=== PATIENT | female | born 1930 | race Caucasian/White ===

== ENCOUNTER 2017-05-25 19:18 | Inpatient (IN) | payer MEDICARE, MEDICAID ==
[~2017-05-25] VITALS: Ht 152.4 cm; Wt 55.8 kg
--- NOTE | 2017-05-25 19:42 | NUR ---
Pt danette from [facility] on a 5150 for gravely disable due to multiple attempts at elopement. Pt alert and oriented to name, , place and month but is disoriented to situation. Pt sts she is scared, pt reassured she is in a safe place. Pt no physical complaints. Resp even and unlabored. No obvious signs of distress at this. Pt resting in position of comfort for self. Pt calm and cooperative at this time. Sitter at bedside. Pt awaiting further eval.
[2017-05-25 19:54] LABS: BASOPHILS # (AUTO) 0.1 K/uL (0.0-8.0); BASOPHILS % (AUTO) 0.7 % (0.0-2.0); EOSINOPHILS # (AUTO) 0.3 K/uL (0.0-0.7); EOSINOPHILS % (AUTO) 3.6 % (0.0-7.0); HEMATOCRIT 35.8 % (37-47); HEMOGLOBIN 11.9 G/DL (12.0-16.0); LYMPHOCYTES # (AUTO) 0.8 K/UL (0.8-4.8); LYMPHOCYTES % (AUTO) 9.7 % (20.5-51.5); MEAN CORPUSCULAR HEMOGLOBIN 30.6 UUG (27.0-31.0); MEAN CORPUSCULAR HGB CONC 33 g/dL (32.0-37.0); MONOCYTES # (AUTO) 0.5 K/UL (0.1-1.30); MONOCYTES % (AUTO) 5.8 % (0.0-11.0); NEUTROPHILS # (AUTO) 6.2 K/UL (1.8-8.9); NEUTROPHILS % (AUTO) 80.2 % (38.5-71.5); PLATELET COUNT (AUTO) 244 K/UL (150-450); RED BLOOD CELL COUNT(AUTO) 3.89 MIL/UL (4.2-5.4); WHITE BLOOD COUNT (AUTO) 7.9 K/UL (4.0-11.2)
[2017-05-25] MEDS ORDERED: POTA10TA15 PO (19:57)
[2017-05-25] MEDS ORDERED: MAGN400O6 PO (19:57)
[2017-05-25] MEDS ORDERED: POLY17PO4 PO (19:57)
[2017-05-25] MEDS ORDERED: FURO-152 PO (19:57)
[2017-05-25] MEDS ORDERED: HYDR26CR TP (19:57)
[2017-05-25] MEDS ORDERED: TRAZ-144 PO (19:57)
[2017-05-25] MEDS ORDERED: MIRT45TA PO (19:57)
[2017-05-25] MEDS ORDERED: BISA10SU12 RC (19:57)
[2017-05-25] MEDS ORDERED: CLON0.5T4 PO (19:57)
[2017-05-25] MEDS ORDERED: MAG355OR32 PO (19:57)
[2017-05-25] MEDS ORDERED: ACET-2154 PO (19:57)
[2017-05-25] MEDS ORDERED: DOCU100C36 PO (19:57)
[2017-05-25] MEDS ORDERED: ACET325T53 PO (19:57)
[2017-05-25] MEDS ORDERED: GABA100C PO (19:57)
[2017-05-25 20:15] LABS: ALANINE AMINOTRANSFERASE 12 U/L (14-59); ALKALINE PHOSPHATASE 93 U/L (50-136); ASPARTATE AMINOTRANSFERASE 15 U/L (15-37); BILIRUBIN,DIRECT 0.1 mg/dL (0.0-0.2); BILIRUBIN,TOTAL 0.1 mg/dL (0.2-1.0); CARBON DIOXIDE 34 mmol/L (21-32); CHLORIDE 102 mmol/L (98-107); CREATININE 1.1 mg/dL (0.6-1.3); GLUCOSE 112 mg/dL (74-106); POTASSIUM 4.4 mmol/L (3.5-5.1); TOTAL PROTEIN, SERUM 7.3 g/dL (6.4-8.2); UREA NITROGEN, BLOOD 25 mg/dL (7-18)
[2017-05-25 20:16] LABS: ETHANOL < 3 MG/DL (0-0)
[2017-05-25 20:23] LABS: THYROID STIMULATING HORMONE 5.312 mIU/mL (0.358-3.740)
[2017-05-25] MEDS ORDERED: LORAZEPAM 0.5 MG TABLET PO ONE (20:30)
--- NOTE | 2017-05-25 20:32 | NUR ---
Pt medicated for anxiety, will monitor for effects of medication. Sitter remains at bedside.
[2017-05-25] MEDS ORDERED: LORAZEPAM 1 MG TABLET ONE (20:41)
--- NOTE | 2017-05-25 21:51 | NUR ---
Pt medically cleared for admission to [facility]. Report called. Pt transferred to the unit.
--- NOTE | 2017-05-25 21:55 | NUR ---
Nurses notes:GPS. At approx 2155 patient was admitted to the unit from ER. patient entered the facility via wheelchair. Full report was obtained from COMPUTER NETWORKING INSTRUCTOR ADJUNCT Kyle. patient noted crying and she stated that "I want to go back home". Per ER report, Ativan 1mg was given at 2030. we will continue to monitor. Addendum: 05/26/17 at 0506 by SAL TROY RN Nurses notes:GPS Patient was admitted with Dx. Psychosis. on a 5150 hold d/t GD, starting on 05/25/17 at 1600 and ending on 05/28/17 at 1600. At time of admission, patient was noted anxious, crying, and wanting to leave the unit. she denies SI and HI. we will continue to monitor.
[2017-05-25] MEDS ORDERED: MAG HYDROX/AL HYDROX/SIMETH 30 ML LIQUID UDC PO PRN (22:45)
[2017-05-25] MEDS ORDERED: LORAZEPAM 0.5 MG TABLET PO PRN (22:45)
[2017-05-25] MEDS ORDERED: TEMAZEPAM 7.5 MG CAPSULE PO PRN (22:45)
[2017-05-25] MEDS ORDERED: ACETAMINOPHEN 325 MG TABLET PO PRN (22:45)
[2017-05-25] MEDS ORDERED: MAGNESIUM HYDROXIDE 30 ML LIQUID UDC PO PRN (22:45)
[2017-05-25] MEDS ORDERED: TEMAZEPAM 7.5 MG CAPSULE ONE (23:26)
[2017-05-26 02:09] VITALS: BP 155/67
[2017-05-26 06:38] LABS: *BILIRUBIN,URIN NEGATIVE (NEGATIVE); *BLOOD, URINE NEGATIVE (NEGATIVE); *CLARITY,URINE CLEAR (CLEAR); *COLOR,URINE YELLOW (YELLOW); *KETONES,URINE NEGATIVE (NEGATIVE); *PROTEIN,URINE NEGATIVE (NEGATIVE); *UROBILINOGEN,URINE 0.2 E.U./dl (NORMAL); LEUKOCYTE ESTERASE ,URINE TRACE (NEGATIVE); NITRITE, URINE NEGATIVE (NEGATIVE); UGLUCOSE NEGATIVE (NEGATIVE)
[2017-05-26 07:23] LABS: BACTERIA,URINE NONE SEEN /HPF (NONE SEEN); RBC,URINE NONE SEEN /HPF (0-3); SQUAMOUS EPITHELIAL CELL,UR FEW /HPF (NONE SEEN)
[2017-05-26 07:30] VITALS: BP 148/82
[2017-05-26] MEDS ORDERED: HYDROCORTISONE 1% CREAM 30 GM TUBE TP PRN (14:00)
[2017-05-26] MEDS ORDERED: BISACODYL 10 MG SUPP.RECT RC PRN (14:00)
[2017-05-26] MEDS ORDERED: GABAPENTIN 100 MG CAPSULE PO PRN (14:00)
[2017-05-26 14:24] LABS: IRON, SERUM 30 ug/dL (50-175)
--- NOTE | 2017-05-26 14:58 | NUR ---
Initial discharge instructions: Pt resides at [facility].[[address] [place],[phone]].Per pt,she would like to return back to the [facility] upon discharge.Spoke with pt's daughter,Cheryl Blair [phone] who stated she would like the pt to return.BERKLEY called and left a voicemail for Michelle in admissions requesting a call back.BERKLEY will speak with pt,family,and MD regarding appropriate discharge plans.SW will form a safe and proper discharge.
[2017-05-26 16:00] VITALS: BP 136/60
[2017-05-26] MEDS: DOCUSATE SODIUM 100 MG CAPSULE PO SCH (17:17)
[2017-05-26] MEDS: TRAZODONE 50 MG TABLET PO SCH (20:09)
[2017-05-26] MEDS: MIRTAZAPINE 15 MG TABLET PO SCH (20:10)
[2017-05-26] MEDS: QUETIAPINE FUMARATE 25 MG TABLET PO SCH (20:10)
[2017-05-26] MEDS: CLONAZEPAM 0.5 MG TABLET PO SCH (20:11)
[2017-05-26 20:12] VITALS: BP 154/84
--- NOTE | 2017-05-27 06:59 | NUR ---
Nurses notes:GPS Patient sleep well last night; however she got up at around 5:30am. She continue asking staff numerous times for her phone and the desired to leave the facility. Patient is easily redirectable. we will continue to monitor.
[2017-05-27 07:30] VITALS: BP 144/67
[2017-05-27] MEDS: FUROSEMIDE 20 MG TABLET PO SCH (08:27)
[2017-05-27] MEDS: MIRALAX 17 GM POWD.PACK PO SCH (08:27)
[2017-05-27] MEDS: CLONAZEPAM 0.5 MG TABLET PO SCH ×2 (08:27→16:01)
[2017-05-27] MEDS: DOCUSATE SODIUM 100 MG CAPSULE PO SCH ×2 (08:27→16:01)
[2017-05-27] MEDS: POTASSIUM CHLORIDE 10 MEQ CAPSULE.SA PO SCH (13:58)
[2017-05-27 16:00] VITALS: BP 144/77
[2017-05-27] MEDS: QUETIAPINE FUMARATE 25 MG TABLET PO SCH (20:07)
[2017-05-27] MEDS: MIRTAZAPINE 15 MG TABLET PO SCH (20:07)
[2017-05-27] MEDS: TRAZODONE 50 MG TABLET PO SCH (20:07)
[2017-05-27 20:55] VITALS: BP 120/63
[2017-05-28 07:30] VITALS: BP 156/73
[2017-05-28] MEDS: FUROSEMIDE 20 MG TABLET PO SCH (08:06)
[2017-05-28] MEDS: POTASSIUM CHLORIDE 10 MEQ CAPSULE.SA PO SCH (08:06)
[2017-05-28] MEDS: DOCUSATE SODIUM 100 MG CAPSULE PO SCH ×2 (08:06→16:09)
[2017-05-28] MEDS: CLONAZEPAM 0.5 MG TABLET PO SCH ×2 (08:06→16:09)
[2017-05-28] MEDS: MIRALAX 17 GM POWD.PACK PO SCH (08:07)
[2017-05-28 15:45] VITALS: BP 124/74
[2017-05-28] MEDS: TRAZODONE 50 MG TABLET PO SCH (20:11)
[2017-05-28] MEDS: MIRTAZAPINE 15 MG TABLET PO SCH (20:11)
[2017-05-28] MEDS: QUETIAPINE FUMARATE 25 MG TABLET PO SCH (20:11)
[2017-05-28 20:50] VITALS: BP 120/60
--- NOTE | 2017-05-29 06:39 | NUR ---
GPS: REMAIN CALM AND COOPERATIVE/SLEPT 6 HRS THROUGH THE NIGHT.NO AGITATION NOTED. CONTINUE PLAN OF CARE.
[2017-05-29 07:30] VITALS: BP 128/59
[2017-05-29] MEDS: CLONAZEPAM 0.5 MG TABLET PO SCH ×2 (09:55→17:47)
[2017-05-29] MEDS: MIRALAX 17 GM POWD.PACK PO SCH (09:55)
[2017-05-29] MEDS: DOCUSATE SODIUM 100 MG CAPSULE PO SCH ×2 (09:55→17:46)
[2017-05-29] MEDS: FUROSEMIDE 20 MG TABLET PO SCH (09:55)
[2017-05-29] MEDS: POTASSIUM CHLORIDE 10 MEQ CAPSULE.SA PO SCH (09:55)
[2017-05-29 16:00] VITALS: BP 133/70
[2017-05-29] MEDS: TRAZODONE 50 MG TABLET PO SCH (20:11)
[2017-05-29] MEDS: MIRTAZAPINE 15 MG TABLET PO SCH (20:11)
[2017-05-29] MEDS: QUETIAPINE FUMARATE 25 MG TABLET PO SCH (20:11)
[2017-05-29 21:33] VITALS: BP 124/66
--- NOTE | 2017-05-30 06:40 | NUR ---
GPS: REMAIN CALM AND COOPERATIVE.SHOWERED THIS MORNING.SLEPT 8 HRS THROUGH THE NIGHT.
[2017-05-30 07:30] VITALS: BP 136/68
[2017-05-30] MEDS: DOCUSATE SODIUM 100 MG CAPSULE PO SCH ×2 (08:00→16:00)
[2017-05-30] MEDS: MIRALAX 17 GM POWD.PACK PO SCH (08:00)
[2017-05-30] MEDS: FUROSEMIDE 20 MG TABLET PO SCH (08:00)
[2017-05-30] MEDS: POTASSIUM CHLORIDE 10 MEQ CAPSULE.SA PO SCH (08:00)
[2017-05-30] MEDS: CLONAZEPAM 0.5 MG TABLET PO SCH ×2 (08:00→16:00)
[2017-05-30 08:37] LABS: BASOPHILS # (AUTO) 0.1 K/uL (0.0-8.0); BASOPHILS % (AUTO) 0.9 % (0.0-2.0); EOSINOPHILS # (AUTO) 0.3 K/uL (0.0-0.7); EOSINOPHILS % (AUTO) 4.8 % (0.0-7.0); HEMATOCRIT 35.6 % (37-47); HEMOGLOBIN 11.6 G/DL (12.0-16.0); LYMPHOCYTES # (AUTO) 0.8 K/UL (0.8-4.8); LYMPHOCYTES % (AUTO) 13.1 % (20.5-51.5); MEAN CORPUSCULAR HEMOGLOBIN 30.1 UUG (27.0-31.0); MEAN CORPUSCULAR HGB CONC 33 g/dL (32.0-37.0); MEAN CORPUSCULAR VOLUME 92.7 FL (81.0-99.0); MONOCYTES # (AUTO) 0.6 K/UL (0.1-1.30); NEUTROPHILS % (AUTO) 70.2 % (38.5-71.5); PLATELET COUNT (AUTO) 244 K/UL (150-450); RED BLOOD CELL COUNT(AUTO) 3.84 MIL/UL (4.2-5.4)
[2017-05-30 08:51] LABS: WHITE BLOOD COUNT (AUTO) 5.8 K/UL (4.0-11.2)
[2017-05-30 09:06] LABS: ALANINE AMINOTRANSFERASE 13 U/L (14-59); ALKALINE PHOSPHATASE 81 U/L (50-136); ASPARTATE AMINOTRANSFERASE 18 U/L (15-37); BILIRUBIN,TOTAL 0.3 mg/dL (0.2-1.0); CARBON DIOXIDE 30 mmol/L (21-32); CHLORIDE 103 mmol/L (98-107); CHOLESTEROL 218 mg/dL (<200); CREATININE 1.1 mg/dL (0.6-1.3); GLUCOSE 85 mg/dL (74-106); HDL CHOLESTEROL 75 mg/dL (40-60); MAGNESIUM 2.3 mg/dL (1.8-2.4); PHOSPHOROUS 3.3 mg/dL (2.5-4.9); POTASSIUM 4.3 mmol/L (3.5-5.1); TRIGLYCERIDES 83 MG/DL (30-150); UREA NITROGEN, BLOOD 26 mg/dL (7-18)
[2017-05-30 17:53] VITALS: BP 118/69
[2017-05-30] MEDS: TRAZODONE 50 MG TABLET PO SCH (20:43)
[2017-05-30] MEDS: QUETIAPINE FUMARATE 25 MG TABLET PO SCH (20:43)
[2017-05-30] MEDS: MIRTAZAPINE 15 MG TABLET PO SCH (20:44)
[2017-05-30 20:46] VITALS: BP 122/61
[2017-05-31 07:30] VITALS: BP 153/71
[2017-05-31] MEDS: CLONAZEPAM 0.5 MG TABLET PO SCH ×2 (08:13→16:15)
[2017-05-31] MEDS: POTASSIUM CHLORIDE 10 MEQ CAPSULE.SA PO SCH (08:13)
[2017-05-31] MEDS: FUROSEMIDE 20 MG TABLET PO SCH (08:13)
[2017-05-31] MEDS: DOCUSATE SODIUM 100 MG CAPSULE PO SCH ×2 (08:13→16:15)
[2017-05-31] MEDS: MIRALAX 17 GM POWD.PACK PO SCH (08:15)
[2017-05-31 15:27] VITALS: BP 132/70
--- NOTE | 2017-05-31 16:26 | NUR ---
DC Note: The patient will be discharged today to [facility] [[address], [place] [address] ] via private transportation. The patient's daughter Cheryl Alves is aware and agreeable with the discharge plan. She stated that she will pick-up the patient and take her to the facility via private car today. Spoke with Alina Ryan LVN who stated that they will be able to accept the patient today. The patient will follow-up at the facility with compotype operator Dr. Rojas and psychiatrist Dr. Rice.
--- NOTE | 2017-05-31 17:14 | NUR ---
Pt left unit at this time on w/c accompanied by sister, other family member, and INTERNSHIP COORDINATOR to private vehicle. Pt is calm and cooperative. Able to make all needs known. Denies pain or discomfort. No aggressive or combative behavior noted. V/S stable. In no acute distress. Left with all noted belongings and paperwork.
== END 2017-05-31 20:15 | DRG 885 ==
LOC: ER 19:19 → GPS 21:45
PROVIDERS: ADMIT Psychiatry & Neurology Psychiatry; ATTEND Internal Medicine
DX: F33.3 Major depressive disorder, recurrent, severe with psychotic symptoms (principal); E78.5 Hyperlipidemia, unspecified; I49.5 Sick sinus syndrome; Z79.899 Other long term (current) drug therapy; G62.9 Polyneuropathy, unspecified; E55.9 Vitamin D deficiency, unspecified; Z85.72 Personal history of non-Hodgkin lymphomas; E03.9 Hypothyroidism, unspecified; I50.9 Heart failure, unspecified; I05.9 Rheumatic mitral valve disease, unspecified; R13.10 Dysphagia, unspecified; M81.0 Age-related osteoporosis without current pathological fracture; D64.9 Anemia, unspecified; Z66 Do not resuscitate
CPT/HCPCS: 36415; 71010; 82306; 83550; 83735; 84100; 84443; 85025; 85730; 87086; 93005; A4663; G0480